=== PATIENT | male | born 1970 | race Two or more races ===

== ENCOUNTER 2019-06-05 13:00 | Emergency (ER) | payer MEDICAID ==
[~2019-06-05] VITALS: Ht 177.8 cm; Wt 88.5 kg
[2019-06-05 14:57] VITALS: BP 134/92
== END 2019-06-05 15:19 | disposition home or self-care (01) ==
LOC: ER 13:00
DX: J20.9 Acute bronchitis, unspecified (principal); R11.2 Nausea with vomiting, unspecified; R19.7 Diarrhea, unspecified; F17.210 Nicotine dependence, cigarettes, uncomplicated

== ENCOUNTER 2019-06-21 07:31 | Emergency (ER) | payer MEDICAID ==
[~2019-06-21] VITALS: Ht 177.8 cm; Wt 88.5 kg
[2019-06-21 08:50] VITALS: BP 125/92
== END 2019-06-21 09:30 | disposition home or self-care (01) ==
LOC: ER 07:37
DX: J02.8 Acute pharyngitis due to other specified organisms (principal); F17.210 Nicotine dependence, cigarettes, uncomplicated
CPT/HCPCS: 71046